=== PATIENT | female | born 1980 | race African-American/Black ===

== ENCOUNTER 2016-10-20 11:01 | Emergency (ER) | payer MEDICAID ==
[~2016-10-20] VITALS: Ht 162.6 cm; Wt 83.0 kg
[2016-10-20 11:03] VITALS: BP 139/93; PULSE 83; RESP 16; TEMP 98.9; O2SAT 97
[2016-10-20] MEDS ORDERED: BACT2OIN TOPICAL (11:23)
[2016-10-20] MEDS ORDERED: CEPH-460 PO (11:23)
--- NOTE | 2016-10-20 11:24 | PD ---
HPI Chief Complaint: Skin Problem Time Seen by Provider: 11:14 Travel History International Travel<30 days: No Contact w/Intl Traveler<30days: No Traveled to known affect area: No History of Present Illness HPI The patient is a 36-year-old female who presents to the emergency department for infected wounds to the right side of the face. The patient states her symptoms started 2 days ago with swelling on the right side of the face with 3 separate [place] or swollen and painful. The patient states she "popped" one of the areas of swelling and had a small amount of drainage which was thick and white. The patient then noted she had a small amount of bleeding afterwards. The patient states the swelling has improved, she still has discomfort over the affected area. The patient's symptoms are mild, slightly alleviated with "popping" one of them and there are no known alleviating factors. She denies any known history of MRSA. PFSH Past Medical History Medical History: Denies Significant Hx Diminished Hearing: No Immunizations Current: Yes Tetanus Vaccination: > 5 Years Influenza Vaccination: No ?: Not LMP: 10-07-16 Past Surgical History Surgical History: No Previous Surgery Social History Alcohol Use: No Tobacco Use: No Substance Use: No Allergies-Medications (Allergen,Severity, Reaction): Coded Allergies: No Known Allergies (Unverified , 10/20/16) Reported Meds & Prescriptions Reported Meds & Active Scripts Active No Active Prescriptions or Reported Medications Review of Systems General / Constitutional: No: Fever HENT: Positive: Other (as noted in the history of present illness) Skin: Positive Other (as noted in the history of present illness), No Rash Endocrine: No: Other (denies any history of diabetes) Physical Exam Narrative GENERAL: Awake, alert, pleasant 36-year-old female who appears her stated age and is in no acute respiratory distress. SKIN: Warm and dry. HEAD: Atraumatic. Normocephalic. EYES: Pupils equal and round. No scleral icterus. No injection or drainage. ENT: No nasal bleeding or discharge. Mucous membranes pink and moist. Inspection of the right side of the face reveals 3 separate small slightly swollen areas with crusting that are tender but no underlying fluctuance. NECK: Trachea midline. No JVD. MUSCULOSKELETAL: No obvious deformities. No clubbing. No cyanosis. No edema. NEUROLOGICAL: Awake and alert. No obvious cranial nerve deficits. Motor grossly within normal limits. Normal speech. PSYCHIATRIC: Appropriate mood and affect; insight and judgment normal. Data Data Last Documented VS Vital Signs Date Time Temp Pulse Resp B/P Pulse Ox O2 Delivery O2 Flow Rate FiO2 10/20/16 11:03 98.9 83 16 139/93 97 [facility] Medical Decision Making Medical Screen Exam Complete: Yes Emergency Medical Condition: Yes Medical Record Reviewed: Yes Differential Diagnosis Differential diagnosis includes infected wound, impetigo, abscess, cellulitis, shingles. Narrative Course The patient has what appears to be impetigo with 3 lesions the right side of face. The patient will be placed on Keflex for 5 days and Bactroban. The patient is advised to apply warm compresses to the affected area and a follow- up with her primary physician. Return if symptoms worsen or progress. Diagnosis Primary Impression: Impetigo Patient Instructions: General Instructions Additional Instructions: Apply warm compresses to the affected area. Medications as directed. Follow- up with her primary physician. Return if symptoms worsen or progress. Med/Other Pt SpecificInfo: Prescription(s) given Scripts Cephalexin (Keflex)500 Mg Pku000 Mg PO Q6H 5 Days Ref 0 Prov:Deepak Snell MD 10/20/16 Mupirocin Topical (Bactroban Topical)2% Oint1 Appl TOPICAL BID #1 TUBE Ref 0 Prov:Deepak Snell MD 10/20/16 Disposition: 01 DISCHARGE HOME Condition: Stable Deepak Snell MD Oct 20, 2016 11:24
== END 2016-10-20 11:30 | disposition home or self-care (01) ==
LOC: PHEFT 11:01
DX: L01.00 Impetigo, unspecified (principal)
CPT/HCPCS: 99283